=== PATIENT | male | born 1950 | race Caucasian/White ===

== ENCOUNTER 2018-05-01 22:03 | Emergency (ER) | payer BC ==
[~2018-05-01] VITALS: Ht 172.7 cm; Wt 59.1 kg
[2018-05-01 22:11] VITALS: BP 153/73; PULSE 113; RESP 20; Ht 172.7 cm; Wt 59.1 kg
[2018-05-02] MEDS ORDERED: KETOROLAC 30 MG INJ IM STA (00:26)
[2018-05-02] MEDS ORDERED: HYDROCODONE/APAP (5/325) TAB PO ONE (00:30)
[2018-05-02] MEDS ORDERED: HYDR-4011 PO (01:45)
[2018-05-02] MEDS ORDERED: PRED20TA PO (01:45)
[2018-05-02] MEDS ORDERED: IBUP-1542 PO (01:45)
--- NOTE | 2018-05-02 01:48 | ERD ---
ER Documentation Chief Complaint Chief Complaint right foot pain x2 days no trauma or fall. hard time walking HPI 67-year-old male presents with pain in the right foot last 2 days. He has similar episode over a year ago which resolved without treatment. Pain is worse this time. Denies any fevers, restricted range of motion, weakness. Denies any history of trauma. ROS All systems reviewed and are negative except as per history of present illness. Medications Home Meds Active Scripts Hydrocodone/Acetaminophen (Rich[place] 5-325 Tablet) 1 Each Tablet, 1 TAB PO Q6H PRN for PAIN, #7 TAB Prov:ISAMAR MITCHELL MD 05/02/18 Ibuprofen* (Motrin*) 600 Mg Tab, 600 MG PO Q6, #15 TAB Prov:ISAMAR MITCHELL MD 05/02/18 Prednisone* (Prednisone*) 20 Mg Tab, 40 MG PO DAILY for 4 Days, TAB Start May 03, 2018 Prov:ISAMAR MITCHELL MD 05/02/18 Allergies Allergies: Coded Allergies: No Known Allergy (Unverified , 05/01/18) PMhx/Soc Medical and Surgical Hx: pt denies Medical Hx, pt denies Surgical Hx Hx Alcohol Use: Yes (occassional) Hx Substance Use: No Hx Tobacco Use: Yes Smoking Status: Current some day smoker FmHx Family History: No diabetes, No coronary disease, No other Physical Exam Vitals Vital Signs Date Temp Pulse Resp B/P (MAP) Pulse Ox O2 O2 Flow FiO2 Time Delivery Rate 05/01/18 98.4 113 20 153/73 99 22:11 (99) Physical Exam Const: No acute distress Head: Atraumatic Eyes: Normal Conjunctiva ENT: Normal External Ears, Nose and Mouth. Neck: Full range of motion. No meningismus. Resp: Clear to auscultation bilaterally Cardio: Regular rate and rhythm, no murmurs Abd: Soft, non tender, non distended. Normal bowel sounds Skin: No petechiae or rashes Back: No midline or flank tenderness Ext: No cyanosis, or edema. Right foot shows some redness and tenderness and swelling at the right first tarsal metatarsal area. No restricted range of motion weakness or deformities. Neur: Awake and alert Psych: Normal Mood and Affect Result Diagram: 05/02/18 0050 05/02/18 0050 Results 24 hrs Laboratory Tests Test 05/02/18 00:50 White Blood Count 11.5 10^3/ul Red Blood Count 4.28 10^6/ul Hemoglobin 14.1 g/dl Hematocrit 40.1 % Mean Corpuscular Volume 93.7 fl Mean Corpuscular Hemoglobin 32.9 pg Mean Corpuscular Hemoglobin Concent 35.2 g/dl Red Cell Distribution Width 12.7 % Platelet Count 137 10^3/UL Mean Platelet Volume 10.6 fl Immature Granulocytes % 0.300 % Neutrophils % 66.7 % Lymphocytes % 22.0 % Monocytes % 10.4 % Eosinophils % 0.3 % Basophils % 0.3 % Nucleated Red Blood Cells % 0.0 /100WBC Immature Granulocytes # 0.040 10^3/ul Neutrophils # 7.7 10^3/ul Lymphocytes # 2.5 10^3/ul Monocytes # 1.2 10^3/ul Eosinophils # 0.0 10^3/ul Basophils # 0.0 10^3/ul Nucleated Red Blood Cells # 0.0 10^3/ul Sodium Level 138 mmol/L Potassium Level 4.4 mmol/L Chloride Level 97 mmol/L Carbon Dioxide Level 28 mmol/L Anion Gap 13 Blood Urea Nitrogen 14 mg/dl Creatinine 0.65 mg/dl Est Glomerular Filtrat Rate mL/min > 60 mL/min Glucose Level 115 mg/dl Uric Acid 6.3 mg/dl Calcium Level 10.0 mg/dl Total Bilirubin 1.7 mg/dl Direct Bilirubin 0.00 mg/dl Indirect Bilirubin 1.7 mg/dl Aspartate Amino Transf (AST/SGOT) 59 IU/L Alanine Aminotransferase (ALT/SGPT) 46 IU/L Alkaline Phosphatase 78 IU/L Total Protein 7.8 g/dl Albumin 4.7 g/dl Globulin 3.10 g/dl Albumin/Globulin Ratio 1.51 Current Medications Medications Dose Sig/Genesis Start Time Status Last (Trade) Ordered Route PRN Stop Time Admin Dose Reason Admin Ketorolac 30 mg ONCE STAT 05/02/18 DC 05/02/18 Tromethamine IM 00:26 05/02/18 00:53 (Toradol) 00:28 1 tab ONCE ONCE 05/02/18 DC 05/02/18 Acetaminophen PO 00:30 05/02/18 00:53 / 00:31 Hydrocodone Bitart (Rich[place] (5/325)) Procedures/MDM CBC shows a white blood cell count 11.5. Mild thrombus cytopenia. Uric acid 6.5. CMP is otherwise normal. Patient was given Toradol 30 mg IM and Richmond 5 mg by mouth. X-ray right foot 3V Interpreted by me: Bones: No fracture Joints: No dislocation Foreign body: None. Degenerative changes of the right first tarsometatarsal joint otherwise no acute fracture dislocation. No evidence of osteomyelitis. Patient presents with right foot pain for last 2 days. Appears to be some type of reactive arthralgia most consistent with gout despite normal uric acid, especially given the history of similar symptoms in the past.. We will treat empirically with NSAIDs, Richmond and a short course of prednisone. Patient is advised to return for worsening redness, fevers, new worsening symptoms with primary doctor this week. The patient was stable with no new complaints during the ER course. Clinically, there is no current evidence to suggest meningitis, sepsis, acute abdomen, pneumonia, stroke, acute coronary syndrome, pulmonary embolism, aortic dissection or any other emergent condition appearing to require further evaluation or hospitalization. Patient counseled regarding my diagnostic impression and care plan. Prior to discharge all questions answered. Pt agrees with treatment plan and understands strict return precautions. Pt is instructed to follow up with primary care provider within 24-48 hours. Precautionary instructions provided including instructions to return to the ER if not improving or for any worsening or changing symptoms or concerns. Departure Diagnosis: Primary Impression: Foot pain Laterality: right Qualified Codes: M79.671 - Pain in right foot Condition: Stable Patient Instructions: Arthralgia Additional Instructions: Symptoms consistent with gout. Recheck for any worsening symptoms with primary care doctor. Cheque otro vez con connelly doctor primario en el proximo arzola or regresa para mas o nueva simptomas. ISAMAR MITCHELL MD May 02, 2018 01:48
== END 2018-05-02 02:00 | disposition home or self-care (01) ==
LOC: FTE 22:03
DX: M79.671 Pain in right foot (principal); F17.210 Nicotine dependence, cigarettes, uncomplicated
CPT/HCPCS: 73630; 80053; 84560; 85025; 96372; 99284; J1885